=== PATIENT | male | born 1980 | race Caucasian/White ===

== ENCOUNTER → 2016-10-20 | Outpatient (CLI) | payer OTHER ==
--- NOTE | ~2016-10-20 | 2DMMODE ---
[facility] [address] [place] [address] 2 D/M-MODE ECHOCARDIOGRAM Name: JACKSON SCOTT Room #: REG [facility]#: [id number] Admission: 10/20/16 Attend Phys: Milton Guaman, Discharge: Date of : 82 Date of Service: 10/20/16 1656 Report #: [id number] THIS REPORT FOR: //name// APPROVED REPORT Study performed: 10/20/2016 15:01:40 EXAM: Comprehensive 2D, Doppler, and color-flow Echocardiogram Patient Location: Out-Patient Room #: Echo lab Status: routine BSA: 2.32 HR: 82 bpm Other Information Study Quality: Good Indications Diabetes Dyspnea Hypertension/HDD 2D Dimensions RVDd: 39.41 mm LVEF(%): 60.91 (>50%) IVSd: 12.66 (7-11mm) LVOT Diam: 22.36 (18-24mm) LVDd: 50.75 mm PWd: 12.70 (7-11mm) Ascending Ao: 32.09 (22-36mm) LVDs: 34.12 (25-40mm) Aortic Root: 32.99 mm IVC: 19.00 mm Toro's LVEF: 60.91 % Volumes Left Atrial Volume (Systole) Single Plane 4CH: 30.72 mL Single Plane 2CH: 51.76 mL LA ESV Index: 18.00 mL/m2 Aortic Valve AoV Peak Won.: 1.14 m/s AO Peak Gr.: 5.23 mmHg LVOT Max P.04 mmHg LVOT Max V: 1.00 m/s JACKI Vmax: 3.45 cm2 Mitral Valve E/A Ratio: 1.6 [facility] [address] [place] [address] 2 D/M-MODE ECHOCARDIOGRAM Name: JACKSON SCOTT Room #: REG [facility]#: [id number] Admission: 10/20/16 Attend Phys: Milton Guaman, Discharge: Date of : 82 Date of Service: 10/20/16 1656 Report #: [id number] MV Decel. Time: 151.40 ms MV E Max Won.: 0.69 m/s MV A Won.: 0.43 m/s MV PHT: 43.91 ms IVRT: 96.89 ms Pulmonary Valve PV Peak Won.: 1.01 m/s PV Peak Gr.: 4.12 mmHg [place] End Vmax: 1.04 m/s Pulmonary Vein P Vein S: 0.41 m/s P Vein A: 0.27 m/s P Vein D: 0.57 m/s P Vein A Dur.: 64.6 msec P Vein S/D Ratio: 0.72 Tricuspid Valve RAP Estimate: 5.00 mmHg Left Ventricle The left ventricle is normal size. There is normal LV segmental wall motion. Mild concentric left ventricular hypertrophy. The left ventricular systolic function is normal. The left ventricular ejection fraction is within the normal range. LVEF is 60-65%. Left ventricular filling pattern is normal for age. Right Ventricle The right ventricle is normal size. The right ventricular systolic function is normal. Atria The left atrium size is normal. The right atrium size is normal. Aortic Valve The aortic valve is normal in structure. No aortic regurgitation is present. There is no aortic valvular stenosis. Mitral Valve The mitral valve is normal in structure. There is no mitral valve regurgitation noted. No evidence of mitral valve stenosis. Tricuspid Valve The tricuspid valve is normal in structure. There is no tricuspid valve regurgitation noted. Pulmonic Valve [address] [address] 2 D/M-MODE ECHOCARDIOGRAM Name: JACKSON SCOTT Room #: REG CL Garcia#: [id number] Admission: 10/20/16 Attend Phys: Milton Guaman, Discharge: Date of : 82 Date of Service: 10/20/16 1656 Report #: [id number] The pulmonary valve is normal in structure. Trace pulmonic regurgitation. Great Vessels The aortic root is normal in size. IVC is normal in size and collapses >50% with inspiration. Pericardium There is no pericardial effusion. <Conclusion> The left ventricular systolic function is normal. There is normal LV segmental wall motion. LVEF 60-65%. Left ventricular filling pattern is normal for age. The aortic valve is normal in structure. No aortic valvular stenosis or insufficiency. The mitral valve is normal in structure. No mitral valve regurgitation noted. Pulmonary artery pressure could not be reliably ascertained There is no pericardial effusion. <ELECTRONICALLY SIGNED> By: Vijay Bojorquez MD, FACC 10/20/16 [phone] [id number] Vijay Bojorquez MD, FACC /INF
== END ==
LOC: CV 08:22
DX: I10 Essential (primary) hypertension (principal); E11.9 Type 2 diabetes mellitus without complications; R06.00 Dyspnea, unspecified